=== PATIENT | male | born 1935 | race Caucasian/White ===

== ENCOUNTER → 2020-09-15 | Day surgery (SDC) | payer MEDICARE, OTHER ==
[~2020-09-15] MED LIST: ALPRAZOLAM0.5 MG PO; AMLODIPINE BES2.5 MG PO; ASPIR 8181 MG PO; ATENOLOL50 MG PO; ATORVASTATIN CA40 MG PO; BRILINTA 90 MG90 MG PO; ECOTRIN81 MG PO; FLOMAX 0.4 MG0.4 MG PO; LEVOTHYROXINE25 MC1 PO; LIPITOR TAB 2020 MG PO; LOPRESSOR 25 MG25 MG PO; NITROGLYCERIN0.4 MG PO; PLAVIX 75 MG TA75 MG PO; SYNTHROID 25 M25 MCG PO; TENORMIN 25 MG25 MG PO; XANAX0.5 MG PO; ZOCOR20 MG PO
== END | disposition home or self-care (01) ==
LOC: OR 06:02
DX: K57.30 Diverticulosis of large intestine without perforation or abscess without bleeding (principal); K64.0 First degree hemorrhoids; K52.9 Noninfective gastroenteritis and colitis, unspecified; N18.9 Chronic kidney disease, unspecified; I25.2 Old myocardial infarction; E07.9 Disorder of thyroid, unspecified; Z79.82 Long term (current) use of aspirin; Z95.5 Presence of coronary angioplasty implant and graft; E66.3 Overweight; Z68.29 Body mass index [BMI] 29.0-29.9, adult; Z87.891 Personal history of nicotine dependence; I12.9 Hypertensive chronic kidney disease with stage 1 through stage 4 chronic kidney disease, or unspecified chronic kidney disease
CPT/HCPCS: J2704; J7040

== ENCOUNTER → 2021-06-06 | Outpatient (CLI) | payer MEDICARE, OTHER | LOC: KOH-I 13:27 | DX: M79.672 Pain in left foot (principal) | CPT/HCPCS: 73630 ==